=== PATIENT | female | born 1975 | race American Indian/Alaskan Native ===

== ENCOUNTER 2019-08-07 13:52 | Outpatient (CLI) | payer MEDICAID ==
--- NOTE | 2019-08-07 16:34 | Ultrasound Report ---
Pelvic Ultrasound HISTORY: PELVIC PAIN/ BLEEDING. TECHNIQUE: Grayscale and color Doppler imaging performed. COMPARISON: MRI of the pelvis from 12/06/14 FINDINGS: Transabdominal imaging was performed. Uterus measures 11.7 x 3.8 x 4.7 cm with endometrial echocomplex measuring 6 mm. Both ovaries appear unremarkable. No pelvic free fluid. IMPRESSION: Unremarkable exam. Signer Name: Yrn Ann MD Signed: 08/07/2019 4:30 PM Workstation Name: [id number]
== END 2019-08-07 13:53 | disposition home or self-care (01) ==
LOC: SPVWC 13:52
PROVIDERS: ATTEND Radiology Vascular & Interventional Radiology
DX: R10.2 Pelvic and perineal pain (principal); N93.9 Abnormal uterine and vaginal bleeding, unspecified
CPT/HCPCS: 76856

== ENCOUNTER 2019-09-06 10:43 | Outpatient (CLI) | payer MEDICAID ==
--- NOTE | 2019-09-06 15:07 | Magnetic Resonance Report ---
MRI PELVIS WITHOUT CONTRAST HISTORY: Pelvic pain. History of uterine embolization for fibroids. COMPARISON: 12/06/2014 MRI pelvis without contrast TECHNIQUE: Routine non-contrast MRI of the pelvis obtained. The patient refused IV contrast. CONTRAST: None. FINDINGS: Uterus: Anteverted and normal in size with normal configuration. It measures approximately 10 cm in l ength by 4.1 cm transverse dimension by 3.8 cm AP dimension. Myometrium: Heterogeneous signal in the uterine fundus is consistent with small fibroids and is uncha nged compared to the previous exam. A focal area of T2 hyperintensity in the fundal myometrium is unc hanged.. Junctional zone: Normal thickness. Endometrium: Normal contour with maximum thickness 4 millimeters. Cervix: No significant abnormality. Vagina: No significant abnormality. Right ovary: Not seen. Left ovary:Normal with a 1.5 cm dominant follicle. Lymphatics: No lymphadenopathy. Bowel: No significant abnormality. Urinary Bladder: No significant abnormality. Fluid: No free fluid. Bone Marrow: No significant abnormality. Muscles: No significant abnormality. Subcutaneous soft tissues: No significant abnormality. Additional Findings: None. IMPRESSION: 1. A normal size fibroid uterus unchanged compared to the 2015 exam. 2. Normal endometrium. 3. Normal left ovary with a 1.5 cm dominant follicle. 4. No right ovary identified. 5. No mass and no explanation for pelvic pain. Signer Name: Antony Ferreira MD Signed: 09/06/2019 3:03 PM Workstation Name: [id number]
== END 2019-09-06 10:44 | disposition home or self-care (01) ==
LOC: SPVIMAG 10:43
PROVIDERS: ATTEND Radiology Vascular & Interventional Radiology
DX: N93.9 Abnormal uterine and vaginal bleeding, unspecified (principal)
CPT/HCPCS: 72195

== ENCOUNTER 2019-10-03 09:06 | Outpatient (CLI) | payer MEDICAID ==
--- NOTE | 2019-10-03 11:31 | Magnetic Resonance Report ---
MRI of the pelvis without and with contrast 10/03/2019 INDICATION: Pelvic pain, bleeding COMPARISON: Pelvic MRI dated 09/06/2019 and 12/06/2014 and 06/13/2014 TECHNIQUE: Axial coronal and sagittal imaging is performed through the pelvis using multiple different imaging s equences. Pre and postcontrast images were obtained. 12 cc of MultiHance is administered FINDINGS: There is a 1 x 0.8 cm nodule in the left lateral myometrium, series 9 image 21. This may represent 2 smaller nodules adjacent to each other. Appearance is characteristic small fibroid. Of note, on postc ontrast images this nodule enhances similarly to myometrium and is difficult to distinguish on the po stcontrast images. The uterus measures approximately 9 cm. The endometrial stripe 4 mm. No suspicious masses are seen. N o suspicious endometrial abnormality is seen. Cervix is unremarkable. There is a 2 cm cyst in the lef t ovary. There is a small follicular cyst in the right ovary measuring 5 mm. Is a very small amount o f free fluid in the cul-de-sac. No adenopathy is seen. IMPRESSION: There is a 1 x 0.8 cm nodule in the left lateral myometrium likely representing a small fibroid. On r eview of the study from 2013 fibroid was noted in a similar location at that time. Signer Name: Ishaan Hendrickson MD Signed: 10/03/2019 11:27 AM Workstation Name: [id number]
== END 2019-10-03 09:07 | disposition home or self-care (01) ==
LOC: MRI 09:06
PROVIDERS: ATTEND Radiology Vascular & Interventional Radiology
DX: N83.01 Follicular cyst of right ovary (principal); N93.9 Abnormal uterine and vaginal bleeding, unspecified; D26.1 Other benign neoplasm of corpus uteri
CPT/HCPCS: 72197; A9577